=== PATIENT | male | born 1930 | race Caucasian/White ===

== ENCOUNTER 2019-09-27 16:39 | Emergency (ER) | payer MEDICARE, OTHER ==
[2019-09-27] MEDS ORDERED: Sodium Chloride 0.9% 10 ML Syringe FLUSH PRN (17:47)
--- NOTE | 2019-09-27 17:53 | EDM.PDOC ---
<OfficerMelo - Last Filed: 09/27/19 19:03> ED HPI GENERAL MEDICAL PROBLEM - General Chief Complaint: Respiratory Problem Stated Complaint: TROUBLE BREATHING Time Seen by Provider: 09/27/19 17:38 Source of Information: Reports: Patient, Old Records, RN Notes Reviewed History Limitations: Reports: No Limitations - History of Present Illness INITIAL COMMENTS - FREE TEXT/NARRATIVE: 88-year-old gentleman presents emergency department a complaint of shortness of breath he has a known history of chronic diastolic congestive heart failure states he has noticed a weight gain 5 to 10 pounds over the last week or so he has been using his medications and he does have leg wraps that are put on daily he is a resident of assisted living facility no chest pain no fevers no nausea or vomiting no diaphoresis - Related Data Allergies Allergy/AdvReac Type Severity Reaction Status Date / Time No Known Allergies Allergy Verified 09/27/19 16:56 Home Meds: Home Meds Aspirin 1 tab PO DAILY 09/27/19 [History] Docusate Sodium [Colace] 2 cap PO DAILY 09/27/19 [History] Furosemide [Lasix] 60 mg PO BID 09/27/19 [History] Insulin Glargine/Lixisenatide [Soliqua 100 Unit-33 Mcg/ml Pen] 70 units SQ ACBREAKFAST 09/27/19 [History] Insulin Lispro [Humalog Kwikpen U-100] See Protocol SQ TID 09/27/19 [History] Magnesium Oxide [Magnesium] 1 tab PO DAILY 09/27/19 [History] Metoprolol Succinate 1 tab PO DAILY 09/27/19 [History] Pantoprazole 1 tab PO DAILY 09/27/19 [History] Tamsulosin [Flomax] 1 tab PO DAILY 09/27/19 [History] Tolterodine [Detrol LA 24 Hr] 1 tab PO DAILY 09/27/19 [History] atorvaSTATin [Lipitor] 1 tab PO DAILY 09/27/19 [History] metFORMIN [Glucophage] 1 tab PO BID 09/27/19 [History] Past Medical History Cardiovascular History: Reports: Afib, CAD, Cardiomyopathy, Heart Failure, High Cholesterol, Hypertension Genitourinary History: Reports: Chronic Renal Insuffiency Endocrine/Metabolic History: 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, Type II Social & Family History - Tobacco Use Smoking Status *Q: Never Smoker ED ROS GENERAL - Review of Systems Review Of Systems: See Below Constitutional: Denies: Fever, Chills, Weakness HEENT: Reports: No Symptoms Respiratory: Reports: Shortness of Breath. Denies: Wheezing, Cough, Sputum Cardiovascular: Reports: Dyspnea on Exertion, Edema GI/Abdominal: Reports: No Symptoms : Reports: No Symptoms Musculoskeletal: Reports: No Symptoms ED EXAM, GENERAL - Physical Exam Exam: See Below Exam Limited By: No Limitations General Appearance: Alert, WD/WN, No Apparent Distress Neck: Normal Inspection, Supple, Non-Tender, Full Range of Motion Respiratory/Chest: No Respiratory Distress, No Accessory Muscle Use, Chest Non- Tender, Decreased Breath Sounds Cardiovascular: No Murmur, Irregularly Irregular GI/Abdominal: Soft, Non-Tender Back Exam: Normal Inspection, Full Range of Motion. No: CVA Tenderness (R), CVA Tenderness (L) Course - Vital Signs Last Recorded V/S: Last Vital Signs Temp 36.2 C 09/27/19 17:02 Pulse 117 H 09/27/19 17:02 Resp 16 09/27/19 17:02 BP 129/86 09/27/19 17:02 Pulse Ox 97 09/27/19 17:02 - Orders/Labs/Meds Orders: Active Orders 24 hr Category Date Time Status Cardiac Monitoring [RC] .As Directed Care 09/27/19 17:48 Active EKG Documentation Completion [RC] ASDIRECTED Care 09/27/19 17:49 Active Peripheral IV Care [RC] . DIRECTED Care 09/27/19 17:49 Active Chest 1V Frontal [CR] Stat Exams 09/27/19 17:49 Taken Sodium Chloride 0.9% [Saline Flush] Med 09/27/19 17:47 Active 10 ml FLUSH ASDIRECTED PRN Peripheral IV Insertion Adult [OM.PC] Stat Oth 09/27/19 17:47 Ordered Saline Lock Insert [OM.PC] Stat Oth 09/27/19 17:47 Ordered EKG 12 Lead [EK] Stat Ther 09/27/19 17:49 Stop Req Medication Orders Sodium Chloride (Saline Flush) 10 ml FLUSH ASDIRECTED PRN PRN Reason: Keep Vein Open Last Admin: 09/27/19 19:35 Dose: 10 ml Labs: Laboratory Tests 09/27/19 09/27/19 Range/Units 18:03 18:03 WBC 4.5 (4.5-11.0) K/uL RBC 4.12 L (4.30-5.90) M/uL Hgb 11.3 L (12.0-15.0) g/dL Hct 37.1 L (40.0-54.0) % MCV 90 (80-98) fL MCH 27 (27-31) pg MCHC 31 L (32-36) % Plt Count 162 (150-400) K/uL Neut % (Auto) 70 H (36-66) % Lymph % (Auto) 14 L (24-44) % [place] % (Auto) 11 H (2-6) % Eos % (Auto) 3 (2-4) % Baso % (Auto) 2 H (0-1) % Sodium 137 L (140-148) mmol/L Potassium 4.5 (3.6-5.2) mmol/L Chloride 99 L (100-108) mmol/L Carbon Dioxide 32 (21-32) mmol/L Anion Gap 10.5 (5.0-14.0) mmol/L BUN 46 H (7-18) mg/dL Creatinine 2.3 H (0.8-1.3) mg/dL Est Cr Clr Drug Dosing 24.55 mL/min Estimated GFR (MDRD) 27 L (>60) Glucose 322 H (74-106) mg/dL Calcium 9.1 (8.5-10.1) mg/dL Total Bilirubin 1.0 (0.2-1.0) mg/dL AST 24 (15-37) U/L ALT 26 (12-78) U/L Alkaline Phosphatase 202 H (46-116) U/L Troponin I < 0.017 (0.000-0.056) ng/mL NT-Pro-B Natriuret Pep 4751 H (5-450) pg/mL Total Protein 6.5 (6.4-8.2) g/dL Albumin 3.2 L (3.4-5.0) g/dL Globulin 3.3 (2.3-3.5) g/dL Albumin/Globulin Ratio 1.0 L (1.2-2.2) Meds: Medications Generic Name Dose Route Start Last Admin Trade Name Freq PRN Reason Stop Dose Admin Sodium Chloride 10 ml 09/27/19 17:47 09/27/19 19:35 Saline Flush FLUSH 10 ml ASDIRECTED PRN Administration Keep Vein Open Discontinued Medications Generic Name Dose Route Start Last Admin Trade Name Rachael PRN Reason Stop Dose Admin Furosemide 80 mg 09/27/19 19:00 09/27/19 19:35 Lasix IVPUSH 09/27/19 19:01 80 mg ONETIME ONE Administration Departure - Departure Disposition: Home, Self-Care 01 Condition: Fair Clinical Impression: None Diastolic CHF Qualifiers: Heart failure chronicity: acute on chronic Qualified Code(s): I50.33 - Acute on chronic diastolic (congestive) heart failure - Discharge Information Instructions: Heart Failure Exacerbation Referrals: Tae Lane MD [Primary Care Provider] - Forms: ED Department Discharge Additional Instructions: Increase your Lasix from 60 mg twice a day to 80 mg twice a day, follow-up with your primary care provider in the next 1 to 2 days for reevaluation Sepsis Event Note - Evaluation Sepsis Screening Result: No Definite Risk - Focused Exam Vital Signs: Vital Signs Temp Pulse Resp BP Pulse Ox 09/27/19 17:02 36.2 C 117 H 16 129/86 97 09/27/19 16:54 36.2 C 117 H 16 129/86 97 Date Exam was Performed: 09/27/19 Time Exam was Performed: 19:03 - Assessment/Plan Plan: Assessment Acuity = acute Site and laterality = exacerbation diastolic congestive heart failure Etiology = unknown Manifestations = none Location of injury = Home Lab values = hemoglobin low 11.3 consistent normochromic anemia creatinine elevated 2.3 consistent chronic renal failure stage G4 troponin was negative BNP elevated 4751 consistent fluid overload type pattern chest x-ray is consistent with congestive heart failure official read radiologist pending Plan He was provided 80 mg Lasix IV while in the emergency department provided good output plan is to increase his Lasix from 60 mg p.o. twice daily to 80 mg p.o. twice daily and then follow-up with primary care 2 to 3 days for reevaluation This note was dictated using [employer] voice recognition software please call with any questions on syntax or grammar. <Aiden Nathan G - Last Filed: 09/27/19 20:46> Course - Re-Assessments/Exams Free Text/Narrative Re-Assessment/Exam: 09/27/19 20:45 Is breathing better after IV furosemide. Departure - Departure Time of Disposition: 20:50 Condition: Fair - Discharge Information *PRESCRIPTION DRUG MONITORING PROGRAM REVIEWED*: Not Applicable *COPY OF PRESCRIPTION DRUG MONITORING REPORT IN PATIENT CINDY: Not Applicable Sepsis Event Note - Focused Exam Date Exam was Performed: 09/27/19 Time Exam was Performed: 20:45
[2019-09-27] MEDS ORDERED: Furosemide 40 MG/4 ML VIAL IVPUSH ONE (19:00)
--- NOTE | 2019-09-28 12:03 | CR ---
CHEST: Portable 09/27/2019 at 6:18 PM CLINICAL HISTORY:Chest pain COMPARISON:None FINDINGS: Heart is enlarged. Pulmonary vascular areas cephalized. There is some patchy airspace disease at both lung bases likely some compressive atelectasis. Patient has small bilateral pleural effusions, right greater than left IMPRESSION: Right megaly with vascular cephalization and bilateral pleural effusions. Consistent with CHF. No significant edema or infiltrate is seen
== END 2019-09-27 21:13 | disposition home or self-care (01) ==
LOC: JP.ED 16:39
DX: I13.0 Hypertensive heart and chronic kidney disease with heart failure and stage 1 through stage 4 chronic kidney disease, or unspecified chronic kidney disease (principal); E11.22 Type 2 diabetes mellitus with diabetic chronic kidney disease; N18.9 Chronic kidney disease, unspecified; I50.33 Acute on chronic diastolic (congestive) heart failure; I48.91 Unspecified atrial fibrillation; I25.10 Atherosclerotic heart disease of native coronary artery without angina pectoris; E78.00 Pure hypercholesterolemia, unspecified; Z79.82 Long term (current) use of aspirin; Z79.899 Other long term (current) drug therapy; Z79.4 Long term (current) use of insulin
CPT/HCPCS: 36415; 71045; 80053; 83880; 84484; 85025; 96374; 99284; 99285; J1940

== ENCOUNTER 2019-10-13 14:11 | Emergency (ER) | payer MEDICARE, OTHER ==
--- NOTE | 2019-10-13 15:23 | EDM.PDOC ---
ED HPI GENERAL MEDICAL PROBLEM - General Chief Complaint: General Stated Complaint: LOSS WEIGHT Time Seen by Provider: 10/13/19 15:23 Source of Information: Reports: Patient History Limitations: Reports: No Limitations - History of Present Illness INITIAL COMMENTS - FREE TEXT/NARRATIVE: pt arrived with a history of having some low bps in the last 24 hours. He is feeling quite weak. He has had chronic lymphedema which his legs are wrapped for. Onset: Gradual Duration: Hour(s): Location: Reports: Chest, Lower Extremity, Left, Lower Extremity, Right, Generalized Associated Symptoms: Reports: Weakness, Other (low bp. ) - Related Data Allergies Allergy/AdvReac Type Severity Reaction Status Date / Time No Known Allergies Allergy Verified 09/27/19 16:56 Home Meds: Home Meds Aspirin 1 tab PO DAILY 09/27/19 [History] Docusate Sodium [Colace] 2 cap PO DAILY 09/27/19 [History] Furosemide [Lasix] 80 mg PO BID 09/27/19 [History] Insulin Glargine/Lixisenatide [Soliqua 100 Unit-33 Mcg/ml Pen] 70 units SQ ACBREAKFAST 09/27/19 [History] Insulin Lispro [Humalog Kwikpen U-100] See Protocol SQ TID 09/27/19 [History] Magnesium Oxide [Magnesium] 1 tab PO DAILY 09/27/19 [History] Metoprolol Succinate 1 tab PO DAILY 09/27/19 [History] Pantoprazole 1 tab PO DAILY 09/27/19 [History] Tamsulosin [Flomax] 1 tab PO DAILY 09/27/19 [History] Tolterodine [Detrol LA 24 Hr] 1 tab PO DAILY 09/27/19 [History] atorvaSTATin [Lipitor] 1 tab PO DAILY 09/27/19 [History] metFORMIN [Glucophage] 1 tab PO BID 09/27/19 [History] metOLazone [Metolazone] 5 mg PO DAILY 10/13/19 [History] Past Medical History Cardiovascular History: Reports: Afib, CAD, Cardiomyopathy, Heart Failure, High Cholesterol, Hypertension Genitourinary History: Reports: Chronic Renal Insuffiency Endocrine/Metabolic History: 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, Type II Social & Family History - Tobacco Use Smoking Status *Q: Never Smoker - Caffeine Use Caffeine Use: Reports: Coffee - Recreational Drug Use Recreational Drug Use: No ED ROS GENERAL - Review of Systems Review Of Systems: See Below Constitutional: Reports: Weakness, Weight Loss HEENT: Reports: No Symptoms Respiratory: Reports: No Symptoms Cardiovascular: Reports: No Symptoms Endocrine: Reports: No Symptoms GI/Abdominal: Reports: No Symptoms : Reports: No Symptoms Musculoskeletal: Reports: No Symptoms Skin: Reports: No Symptoms Neurological: Reports: No Symptoms Psychiatric: Reports: No Symptoms ED EXAM, GENERAL - Physical Exam Exam: See Below Free Text/Narrative:: pt arrived with concern regarding lower bps and a 10 lb wt loss. He has been weaker than usual. He is not eating well. Exam Limited By: Intoxication General Appearance: Alert, No Apparent Distress, Anxious Ears: Normal TMs Nose: Normal Mucosa Throat/Mouth: Normal Inspection Head: Atraumatic Neck: Normal Inspection Respiratory/Chest: No Respiratory Distress Cardiovascular: Regular Rate, Rhythm GI/Abdominal: Soft, Non-Tender (Male) Exam: Deferred Rectal (Males) Exam: Deferred Back Exam: Normal Inspection Extremities: Other (marked swelling in the lower legs bilateral. He does have a known history of lymphedema. ) Neurological: Alert, Oriented, Normal Cognition, Other (pt was recently placed on zarocolyn. The nephrolgist thought he was on the dry side when he was last seen. ) Psychiatric: Normal Affect Course - Vital Signs Last Recorded V/S: Last Vital Signs Temp 36.7 C 10/13/19 15:04 Pulse 85 10/13/19 17:11 Resp 16 10/13/19 17:11 BP 118/70 10/13/19 17:11 Pulse Ox 97 10/13/19 17:11 Orthostatic Blood Pressure [ 114/58 Sitting] Orthostatic Blood Pressure [ 109/73 Supine] - Orders/Labs/Meds Orders: Active Orders 24 hr Category Date Time Status Orthostatic Vital Signs [RC] ASDIRECTED Care 10/13/19 15:23 Active Sodium Chloride 0.9% [Normal Saline] 1,000 ml Med 10/13/19 16:00 Active IV ASDIRECTED Medication Orders Sodium Chloride (Normal Saline) 1,000 mls @ 500 mls/hr IV ASDIRECTED CADY Last Admin: 10/13/19 16:19 Dose: 500 mls/hr Labs: Laboratory Tests 10/13/19 10/13/19 10/13/19 Range/Units 15:16 15:16 15:23 WBC 6.0 (4.5-11.0) K/uL RBC 4.17 L (4.30-5.90) M/uL Hgb 11.4 L (12.0-15.0) g/dL Hct 37.1 L (40.0-54.0) % MCV 89 (80-98) fL MCH 27 (27-31) pg MCHC 31 L (32-36) % Plt Count 202 (150-400) K/uL Neut % (Auto) 76 H (36-66) % Lymph % (Auto) 10 L (24-44) % [place] % (Auto) 11 H (2-6) % Eos % (Auto) 2 (2-4) % Baso % (Auto) 1 (0-1) % Sodium 137 L (140-148) mmol/L Potassium 3.5 L (3.6-5.2) mmol/L Chloride 92 L (100-108) mmol/L Carbon Dioxide 36 H (21-32) mmol/L Anion Gap 12.5 (5.0-14.0) mmol/L BUN 74 H D (7-18) mg/dL Creatinine 2.6 H (0.8-1.3) mg/dL Est Cr Clr Drug Dosing 21.72 mL/min Estimated GFR (MDRD) 24 L (>60) Glucose 346 H (74-106) mg/dL Calcium 8.9 (8.5-10.1) mg/dL Total Bilirubin 1.7 H D (0.2-1.0) mg/dL AST 21 (15-37) U/L ALT 22 (12-78) U/L Alkaline Phosphatase 167 H (46-116) U/L C-Reactive Protein 0.15 (0.0-0.3) mg/dL Total Protein 6.5 (6.4-8.2) g/dL Albumin 3.1 L (3.4-5.0) g/dL Globulin 3.4 (2.3-3.5) g/dL Albumin/Globulin Ratio 0.9 L (1.2-2.2) Urine Color (YELLOW) Urine Appearance (CLEAR) Urine pH (5.0-8.0) Ur Specific [place] (1.008-1.030) Urine Protein (NEGATIVE) mg/dL Urine Glucose (UA) (NEGATIVE) mg/dL Urine Ketones (NEGATIVE) mg/dL Urine Occult Blood (NEGATIVE) Urine Nitrite (NEGATIVE) Urine Bilirubin (NEGATIVE) Urine Urobilinogen (0.2-1.0) EU/dL Ur Leukocyte Esterase (NEGATIVE) Urine RBC (0-5) Urine WBC (0-5) Ur Epithelial Cells Amorphous Sediment Urine Bacteria Urine Mucus 05/26/20 Range/Units 16:11 WBC (4.5-11.0) K/uL RBC (4.30-5.90) M/uL Hgb (12.0-15.0) g/dL Hct (40.0-54.0) % MCV (80-98) fL MCH (27-31) pg MCHC (32-36) % Plt Count (150-400) K/uL Neut % (Auto) (36-66) % Lymph % (Auto) (24-44) % [place] % (Auto) (2-6) % Eos % (Auto) (2-4) % Baso % (Auto) (0-1) % Sodium (140-148) mmol/L Potassium (3.6-5.2) mmol/L Chloride (100-108) mmol/L Carbon Dioxide (21-32) mmol/L Anion Gap (5.0-14.0) mmol/L BUN (7-18) mg/dL Creatinine (0.8-1.3) mg/dL Est Cr Clr Drug Dosing mL/min Estimated GFR (MDRD) (>60) Glucose (74-106) mg/dL Calcium (8.5-10.1) mg/dL Total Bilirubin (0.2-1.0) mg/dL AST (15-37) U/L ALT (12-78) U/L Alkaline Phosphatase (46-116) U/L C-Reactive Protein (0.0-0.3) mg/dL Total Protein (6.4-8.2) g/dL Albumin (3.4-5.0) g/dL Globulin (2.3-3.5) g/dL Albumin/Globulin Ratio (1.2-2.2) Urine Color Yellow (YELLOW) Urine Appearance Clear (CLEAR) Urine pH 7.5 (5.0-8.0) Ur Specific [place] 1.020 (1.008-1.030) Urine Protein Negative (NEGATIVE) mg/dL Urine Glucose (UA) Negative (NEGATIVE) mg/dL Urine Ketones Negative (NEGATIVE) mg/dL Urine Occult Blood Negative (NEGATIVE) Urine Nitrite Negative (NEGATIVE) Urine Bilirubin Negative (NEGATIVE) Urine Urobilinogen 1.0 (0.2-1.0) EU/dL Ur Leukocyte Esterase Negative (NEGATIVE) Urine RBC 0-5 (0-5) Urine WBC 0-5 (0-5) Ur Epithelial Cells Not seen Amorphous Sediment Not seen Urine Bacteria Not seen Urine Mucus Not seen Meds: Medications Generic Name Dose Route Start Last Admin Trade Name Freq PRN Reason Stop Dose Admin Sodium Chloride 1,000 mls @ 500 mls/hr 10/13/19 16:00 10/13/19 16:19 Normal Saline IV 500 mls/hr ASDIRECTED CADY Administration Discontinued Medications Generic Name Dose Route Start Last Admin Trade Name Freq PRN Reason Stop Dose Admin Insulin Glargine 5 units 10/14/19 09:00 Lantus Solostar SUBCUT 10/14/19 09:01 DAILY ONE Insulin Human Regular 5 unit 10/13/19 16:21 10/13/19 16:42 Humulin R SUBCUT 10/13/19 16:22 5 units ONETIME ONE Administration - Re-Assessments/Exams Free Text/Narrative Re-Assessment/Exam: 10/13/19 16:36 pt had orthostatic bp done which was normal except for a sig drop in pulse when he sat up. His lab wotk would indicate that he was on the dry side. 10/13/19 16:46 pt was hydrated with 1 liter of fluid. He had lab work which would indicate he was dehydrated. His lab work 10/13/19 16:48 his creatnine is 2.6. His glucose was 320 and he was given 5 units of regular insulin. Departure - Departure Time of Disposition: 18:04 Disposition: Home, Self-Care 01 Condition: Fair Clinical Impression: Dehydration, Renal insufficiency - Discharge Information Referrals: Tae Lane MD [Primary Care Provider] - Forms: ED Department Discharge Care Plan Goals: decrease zaroxolyn to 5 mg twice wekly, send a copy of lab work with the pt back to [facility]. Sepsis Event Note - Evaluation Sepsis Screening Result: No Definite Risk - Focused Exam Vital Signs: Vital Signs Temp Pulse Resp BP Pulse Ox 10/13/19 17:11 85 16 118/70 97 10/13/19 15:56 81 16 115/66 94 L 10/13/19 15:04 36.7 C 115 H 18 107/68 95 10/13/19 15:00 36.7 C 115 H 18 107/68 95 Date Exam was Performed: 10/13/19 Time Exam was Performed: 18:03 - My Orders Last 24 Hours: My Active Orders 10/13/19 15:23 Orthostatic Vital Signs [RC] ASDIRECTED 10/13/19 16:00 Sodium Chloride 0.9% [Normal Saline] 1,000 ml IV ASDIRECTED - Assessment/Plan Last 24 Hours: My Active Orders 10/13/19 15:23 Orthostatic Vital Signs [RC] ASDIRECTED 10/13/19 16:00 Sodium Chloride 0.9% [Normal Saline] 1,000 ml IV ASDIRECTED
[2019-10-13] MEDS ORDERED: Sodium Chloride 0.9% 1,000 ML IV SCH (16:00)
[2019-10-13] MEDS ORDERED: Insulin Regular, Human 100 Units/ML 3 ML Vial SUBCUT ONE (16:21)
[2019-10-14] MEDS ORDERED: Insulin Glargine,Human Rec. Analog 100 Units/ML 3 ML Pen SUBCUT ONE (09:00)
== END 2019-10-13 18:47 | disposition home or self-care (01) ==
LOC: JP.ED 14:11
DX: E86.0 Dehydration (principal); E11.22 Type 2 diabetes mellitus with diabetic chronic kidney disease; N18.9 Chronic kidney disease, unspecified; E78.00 Pure hypercholesterolemia, unspecified; I50.9 Heart failure, unspecified; I48.91 Unspecified atrial fibrillation; Z79.82 Long term (current) use of aspirin; Z79.4 Long term (current) use of insulin; Z79.899 Other long term (current) drug therapy
CPT/HCPCS: 36415; 80053; 81001; 82962; 85025; 86140; 96360; 96361; 99283; 99284; J1815; J7030

== ENCOUNTER 2019-10-30 06:09 | Emergency (ER) | payer MEDICARE, OTHER ==
--- NOTE | 2019-10-30 06:38 | EDM.PDOC ---
ED HPI GENERAL MEDICAL PROBLEM - General Chief Complaint: Upper Extremity Injury/Pain Stated Complaint: FELL Time Seen by Provider: 10/30/19 06:33 Source of Information: Reports: Patient History Limitations: Reports: No Limitations - History of Present Illness INITIAL COMMENTS - FREE TEXT/NARRATIVE: pt fell about 10 pm last nite and hit a wall. He developed pain and swellin in the rt wrist. He arrived this am because he thought he could have a fracture in the wrist. Onset: Other (pt fell at 10pm last nite. ) Duration: Hour(s): Location: Reports: Upper Extremity, Right Associated Symptoms: Reports: No Other Symptoms, Other (pt did hit his head but was not knocked out. He is not on blood thinners. ) right wrist Pain Score (Numeric/FACES): 9 - Related Data Allergies Allergy/AdvReac Type Severity Reaction Status Date / Time No Known Allergies Allergy Verified 10/30/19 06:22 Home Meds: Home Meds Aspirin 1 tab PO DAILY 09/27/19 [History] Docusate Sodium [Colace] 2 cap PO DAILY 09/27/19 [History] Furosemide [Lasix] 80 mg PO BID 09/27/19 [History] Insulin Glargine/Lixisenatide [Soliqua 100 Unit-33 Mcg/ml Pen] 70 units SQ ACBREAKFAST 09/27/19 [History] Insulin Lispro [Humalog Kwikpen U-100] See Protocol SQ TID 09/27/19 [History] Magnesium Oxide [Magnesium] 1 tab PO DAILY 09/27/19 [History] Metoprolol Succinate 1 tab PO DAILY 09/27/19 [History] Pantoprazole 1 tab PO DAILY 09/27/19 [History] Tamsulosin [Flomax] 1 tab PO DAILY 09/27/19 [History] Tolterodine [Detrol LA 24 Hr] 1 tab PO DAILY 09/27/19 [History] atorvaSTATin [Lipitor] 1 tab PO DAILY 09/27/19 [History] metFORMIN [Glucophage] 1 tab PO BID 09/27/19 [History] metOLazone [Metolazone] 5 mg PO DAILY 10/13/19 [History] Past Medical History HEENT History: Reports: Other (See Below) Other HEENT History: Dry Eye Syndrome Cardiovascular History: Reports: Afib, CAD, Cardiomyopathy, Heart Failure, High Cholesterol, Hypertension Genitourinary History: Reports: Chronic Renal Insuffiency Musculoskeletal History: Reports: Other (See Below) Other Musculoskeletal History: carpal rafa Endocrine/Metabolic History: 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, Type II - Infectious Disease History 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 ) Skin: Reports: No Symptoms ED EXAM, GENERAL - Physical Exam Exam: See Below Free Text/Narrative:: pt is alert and able to give a good history. Exam Limited By: No Limitations General Appearance: Alert, Mild Distress Ears: Normal TMs Nose: Normal Inspection Throat/Mouth: Normal Inspection Neck: Normal Inspection Respiratory/Chest: No Respiratory Distress Extremities: Other (pt is tender with the rt wrist. There is mild swelling of the wrist. He has normal sensation and circulation. ) Neurological: Alert, Normal Cognition Course - Vital Signs Last Recorded V/S: Last Vital Signs Temp 36.7 C 10/30/19 06:21 Pulse 48 L 10/30/19 06:21 Resp 14 10/30/19 06:21 BP 97/51 L 10/30/19 06:21 Pulse Ox 96 10/30/19 06:21 - Orders/Labs/Meds Orders: Active Orders 24 hr Category Date Time Status Wrist Comp Min 3V Rt [CR] Stat Exams 10/30/19 06:32 Ordered - Re-Assessments/Exams Free Text/Narrative Re-Assessment/Exam: 10/30/19 06:58 xrays revealed a undisplaced fracture of the radius. a short arm premade splint was appled. Pt will elevate and us a cool pack. Departure - Departure Time of Disposition: 06:59 Disposition: Home, Self-Care 01 Condition: Fair Clinical Impression: Right radial fracture - Discharge Information Referrals: Tae Lane MD [Primary Care Provider] - Forms: ED Department Discharge Care Plan Goals: leave splint in place. elevate the arm when sitting, cool pack, sling when up and about, appt with ortho--Dr Carvajal Saturday. [id number] 1 tab q6h prn for pain. codiene can cause constipation use some prunes or be watchful of bowel movements. Sepsis Event Note (ED) - Evaluation Sepsis Screening Result: No Definite Risk - Focused Exam Vital Signs: Vital Signs Temp Pulse Resp BP Pulse Ox 10/30/19 06:21 36.7 C 48 L 14 97/51 L 96 - My Orders Last 24 Hours: My Active Orders 10/30/19 06:32 Wrist Comp Min 3V Rt [CR] Stat - Assessment/Plan Last 24 Hours: My Active Orders 10/30/19 06:32 Wrist Comp Min 3V Rt [CR] Stat
--- NOTE | 2019-10-30 09:12 | CR ---
Wrist Comp Min 3V Rt CLINICAL HISTORY: Fall FINDINGS: There is an impacted fracture of the distal radius. There is arterial calcification. There is also calcification in the triangular fibrocartilage complex. The there are osteoarthritic changes in the wrist. Bones are osteoporotic. Impression: Impaction fracture distal radius Osteoarthritis Osteoporosis
== END 2019-10-30 07:24 | disposition home or self-care (01) ==
LOC: JP.ED 06:09
DX: S52.501A Unspecified fracture of the lower end of right radius, initial encounter for closed fracture (principal); I48.91 Unspecified atrial fibrillation; I25.10 Atherosclerotic heart disease of native coronary artery without angina pectoris; E78.00 Pure hypercholesterolemia, unspecified; I13.0 Hypertensive heart and chronic kidney disease with heart failure and stage 1 through stage 4 chronic kidney disease, or unspecified chronic kidney disease; N18.9 Chronic kidney disease, unspecified; I50.9 Heart failure, unspecified; E11.22 Type 2 diabetes mellitus with diabetic chronic kidney disease; Z79.4 Long term (current) use of insulin; Z79.899 Other long term (current) drug therapy; W22.8XXA Striking against or struck by other objects, initial encounter
CPT/HCPCS: 73110-26-RT; 73110-RT; 99283

== ENCOUNTER 2019-12-14 09:39 | Emergency (ER) | payer MEDICARE, OTHER ==
--- NOTE | 2019-12-14 10:16 | EDM.PDOC ---
ED HPI GENERAL MEDICAL PROBLEM - General Chief Complaint: Lower Extremity Injury/Pain Stated Complaint: right leg weakness Time Seen by Provider: 12/14/19 10:00 Source of Information: Reports: Patient, Family, Old Records, RN History Limitations: Reports: No Limitations - History of Present Illness INITIAL COMMENTS - FREE TEXT/NARRATIVE: 89 yo male recent admission to a local assisted living facility had his R knee give out this morning when he was attempting to get up. He almost fell, but didn't. He has no pain now lying in bed. 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 Dr. Peewee Carreon is his primary. He has had that knee injected remotely with "cortisone". He uses a wheeled walker to help him get around. Onset: Today, Sudden Onset Date: 12/14/19 Duration: Minutes:, Improving Location: Reports: Lower Extremity, Right Quality: Reports: Sharp, Stabbing Severity: Severe Improves with: Reports: Other (nonweight bearing) Worsens with: Reports: Other (weight bearing/walking) Context: Reports: Other (See HPI) Associated Symptoms: Reports: No Other Symptoms Treatments BATCH MAKER: Reports: Other (see below) (none) - Related Data Allergies Allergy/AdvReac Type Severity Reaction Status Date / Time No Known Allergies Allergy Verified 12/14/19 09:43 Home Meds: Home Meds Docusate Sodium [Colace] 2 cap PO DAILY 09/27/19 [History] Insulin Lispro [Humalog Kwikpen U-100] See Protocol SQ TID 09/27/19 [History] Magnesium Oxide [Magnesium] 1 tab PO DAILY 09/27/19 [History] Pantoprazole 40 mg PO DAILY 09/27/19 [History] Tamsulosin [Flomax] 0.4 mg PO DAILY 09/27/19 [History] Tolterodine [Detrol LA 24 Hr] 4 mg PO DAILY 10/30/19 [History] Acetaminophen with Codeine [Tylenol with Codeine #3 Tablet] 1 tab PO Q6H PRN 11/03/19 [History] Amoxicillin 2,000 mg PO ASDIRECTED 11/03/19 [History] Aspirin [Halfprin] 81 mg PO DAILY 11/03/19 [History] Dextrose [Glucose Gel] 38 gm PO ASDIRECTED 11/03/19 [History] Furosemide 80 mg PO DAILY 11/03/19 [History] Insulin Glarg,Human.Rec.Analog [Lantus Solostar] 70 units SQ DAILY 11/03/19 [History] Nitroglycerin 0.4 mg SL ASDIRECTED 11/03/19 [History] atorvaSTATin [Lipitor] 20 mg PO DAILY 11/03/19 [History] Past Medical History HEENT History: Reports: Other (See Below) Other HEENT History: Dry Eye Syndrome Cardiovascular History: Reports: Afib, CAD, Cardiomyopathy, Heart Failure, High Cholesterol, Hypertension Genitourinary History: Reports: Chronic Renal Insuffiency Musculoskeletal History: Reports: Fracture, Other (See Below) Other Musculoskeletal History: R wrist Fx 10/30/19 Endocrine/Metabolic History: 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, Type II - Infectious Disease History Infectious Disease History: Reports: WVX-Unviehflum-Bxnwsbihy Enterobacteriaceae, Measles, Mumps Social & Family History - Tobacco Use Smoking Status *Q: Never Smoker - Caffeine Use Caffeine Use: Reports: Coffee - Recreational Drug Use Recreational Drug Use: No Review of Systems - Review of Systems Review Of Systems: See Below Constitutional: Reports: No Symptoms Musculoskeletal: Reports: Joint Pain (R knee with flexion/extension while weight bearing only). Denies: Joint Swelling Skin: Reports: No Symptoms Neurological: Reports: No Symptoms ED EXAM, GENERAL - Physical Exam Exam: See Below Exam Limited By: No Limitations General Appearance: Alert, WD/WN, No Apparent Distress Extremities: Normal Inspection, Normal Range of Motion, Non-Tender, No Pedal Edema, Other (no effusion and no ligamentous laxity and no jt line tenderness. Passive ROM is nontender in ER. ). No: Pedal Edema, Limited Range of Motion, Increased Warmth, Redness Neurological: Alert, Oriented, CN II-XII Intact, Normal Cognition, No Motor/Sensory Deficits Psychiatric: Normal Affect, Normal Mood Skin Exam: Warm, Dry, Intact, Normal Color, No Rash Course - Vital Signs Last Recorded V/S: Last Vital Signs Temp 36.8 C 12/14/19 09:52 Pulse 76 12/14/19 09:52 Resp 16 12/14/19 09:52 BP 138/65 12/14/19 09:52 Pulse Ox 98 12/14/19 09:52 - Re-Assessments/Exams Free Text/Narrative Re-Assessment/Exam: 12/14/19 10:16 Will try walking with a knee immobilizer. Free Text/Narrative Re-Assessment/Exam: 12/14/19 10:24 Able to walk with immobilizer. Departure - Departure Time of Disposition: 10:30 Disposition: Home, Self-Care 01 Condition: Good Clinical Impression: Arthritis of knee, right - Discharge Information *PRESCRIPTION DRUG MONITORING PROGRAM REVIEWED*: No *COPY OF PRESCRIPTION DRUG MONITORING REPORT IN PATIENT CINDY: No Instructions: Arthritis, Beju-ex-Dfop Referrals: Tae Lane MD [Primary Care Provider] - Forms: ED Department Discharge Additional Instructions: Wear the immobilizer when you are walking to prevent your knee from giving out. Discuss your issue with either orthopedics or Dr. Carreon. Return as needed. Sepsis Event Note (ED) - Evaluation Sepsis Screening Result: No Definite Risk - Focused Exam Vital Signs: Vital Signs Temp Pulse Resp BP Pulse Ox 12/14/19 09:52 36.8 C 76 16 138/65 98
== END 2019-12-14 10:43 | disposition home or self-care (01) ==
LOC: JP.ED 09:39
DX: M17.11 Unilateral primary osteoarthritis, right knee (principal); I48.91 Unspecified atrial fibrillation; I25.10 Atherosclerotic heart disease of native coronary artery without angina pectoris; I13.0 Hypertensive heart and chronic kidney disease with heart failure and stage 1 through stage 4 chronic kidney disease, or unspecified chronic kidney disease; I50.9 Heart failure, unspecified; E11.22 Type 2 diabetes mellitus with diabetic chronic kidney disease; N18.9 Chronic kidney disease, unspecified; E78.00 Pure hypercholesterolemia, unspecified; Z79.82 Long term (current) use of aspirin; Z79.4 Long term (current) use of insulin; Z79.899 Other long term (current) drug therapy
CPT/HCPCS: 99283

== ENCOUNTER 2021-03-31 10:48 | Inpatient (IN) | payer MEDICARE, OTHER ==
[2021-03-31] MEDS ORDERED: Sodium Chloride 0.9% 10 ML Syringe FLUSH PRN (11:37)
--- NOTE | 2021-03-31 11:42 | EDM.PDOC ---
<Aiden Nathan G - Last Filed: 03/31/21 17:17> ED HPI GENERAL MEDICAL PROBLEM - General Chief Complaint: Cardiovascular Problem Stated Complaint: MEDICAL [facility] Time Seen by Provider: 03/31/21 11:20 Source of Information: Reports: Patient, EMS, Old Records, RN History Limitations: Reports: No Limitations - History of Present Illness INITIAL COMMENTS - FREE TEXT/NARRATIVE: 89 yo male resident of a local assisted living facility presents via EMS for bradycardia. He says his HR has been low for a few days. This AM he was transiently pale and had blurred vision as well so was sent via EMS to the ER. No CP or SOB reported. He was fully alert by the time EMS arrived. Has known chronic afib. Onset: Unknown/Unsure Duration: Day(s):, Getting Worse Location: Reports: Chest Quality: Reports: Other (pain not reported) Severity: Moderate Improves with: Reports: None Worsens with: Reports: Other (unsure) Context: Reports: Other (See HPI) Associated Symptoms: Reports: Loss of Appetite, Malaise. Denies: Chest Pain, Shortness of Breath Treatments CAMPER ASSEMBLER: Reports: Other (see below) (none) - Related Data Allergies Allergy/AdvReac Type Severity Reaction Status Date / Time No Known Allergies Allergy Verified 03/31/21 11:02 Home Meds: Home Meds Docusate Sodium [Colace] 2 cap PO DAILY 09/27/19 [History] Insulin Lispro [Humalog Kwikpen U-100] See Protocol SQ TID 09/27/19 [History] Magnesium Oxide [Magnesium] 1 tab PO DAILY 09/27/19 [History] Pantoprazole 40 mg PO DAILY 09/27/19 [History] Tolterodine [Detrol LA 24 Hr] 4 mg PO DAILY 10/30/19 [History] Amoxicillin 2,000 mg PO ASDIRECTED 11/03/19 [History] Aspirin [Halfprin] 81 mg PO DAILY 11/03/19 [History] Dextrose [Glucose Gel] 38 gm PO ASDIRECTED 11/03/19 [History] Furosemide 80 mg PO DAILY 11/03/19 [History] Insulin Glarg,Human.Rec.Analog [Lantus Solostar] 70 units SQ DAILY 11/03/19 [History] Nitroglycerin 0.4 mg SL ASDIRECTED 11/03/19 [History] atorvaSTATin [Lipitor] 20 mg PO DAILY 11/03/19 [History] Liraglutide [Victoza] 1.8 mg SQ DAILY 03/31/21 [History] Tolterodine Tartrate [Tolterodine Tartrate ER] 4 mg PO BEDTIME 03/31/21 [History] polyethylene glycoL 3350 [MiraLAX] 1 packet PO DAILY 03/31/21 [History] Past Medical History HEENT History: Reports: Other (See Below) Other HEENT History: Dry Eye Syndrome Cardiovascular History: Reports: Afib, CAD, Cardiomyopathy, Heart Failure, High Cholesterol, Hypertension Genitourinary History: Reports: Chronic Renal Insuffiency Musculoskeletal History: Reports: Fracture, Other (See Below) Other Musculoskeletal History: R wrist Fx 10/30/19. right knee pain. right shoulder pain Endocrine/Metabolic History: 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, Type II - Infectious Disease History Infectious Disease History: Reports: KND-Wveqjwnfhb-Yedpbryoz Enterobacteriaceae, Measles, Mumps - Past Surgical History Musculoskeletal Surgical History: Reports: None Social & Family History - Tobacco Use Tobacco Use Status *Q: Unknown Ever Used Tobacco - Caffeine Use Caffeine Use: Reports: Coffee - Recreational Drug Use Recreational Drug Use: No ED ROS GENERAL - Review of Systems Review Of Systems: See Below Constitutional: Reports: Malaise, Decreased Appetite HEENT: Reports: No Symptoms Respiratory: Reports: No Symptoms Cardiovascular: Reports: Lightheadedness (not now) Endocrine: Reports: No Symptoms GI/Abdominal: Reports: Decreased Appetite : Reports: No Symptoms Musculoskeletal: Reports: No Symptoms Skin: Reports: No Symptoms Neurological: Reports: No Symptoms ED EXAM, GENERAL - Physical Exam Exam: See Below Exam Limited By: No Limitations General Appearance: Alert, WD/WN, No Apparent Distress Eye Exam: Bilateral Eye: Normal Inspection Ears: Normal External Exam, Normal Canal, Hearing Grossly Normal Ear Exam: Bilateral Ear: Auricle Normal, Canal Normal Nose: Normal Inspection, No Blood Throat/Mouth: Normal Inspection, Normal Lips, Normal Oropharynx, Normal Voice, No Airway Compromise Head: Atraumatic, Normocephalic Neck: Normal Inspection Respiratory/Chest: No Respiratory Distress, Lungs Clear, Normal Breath Sounds, No Accessory Muscle Use Cardiovascular: Regular Rate, Rhythm, No Edema, Bradycardia GI/Abdominal: Soft, Non-Tender Back Exam: Normal Inspection Extremities: Normal Inspection, Normal Range of Motion, Non-Tender, No Pedal Edema Neurological: Alert, Oriented, CN II-XII Intact, Normal Cognition, No Motor/Sensory Deficits Psychiatric: Normal Affect, Normal Mood Skin Exam: Warm, Dry, Normal Color, Erythema (R groin(tinea cruris)), Wound/Incision (superficial decubiti on both medial buttocks, not infected.) #1 Interpretation EKG Date: 03/31/21 Time: 12:00 Rhythm: NSR Rate (Beats/Min): 38 [place]: Normal P-Wave: Present QRS: RBBB ST-T: Normal QT: Normal Comparison: NA - No Prior EKG (1st degree A-V block) Course - Vital Signs Text/Narrative:: Called [facility] about his situation, they placed him on a waiting list @ 1350h Departure - Departure Disposition: Admitted As Inpatient 68 Condition: Fair Clinical Impression: Elevated blood sugar, Tinea cruris, Symptomatic bradycardia, 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 Decubitus ulcer of ischial area Qualifiers: Pressure injury stage: stage 2 Laterality: unspecified laterality Qualified Code(s): L89.302 - Pressure ulcer of unspecified buttock, stage 2 Referrals: PCP,None [Primary Care Provider] - Forms: ED Department Discharge Sepsis Event Note (ED) - Evaluation Sepsis Screening Result: No Definite Risk <Dank Salazar - Last Filed: 04/01/21 06:41> Course - Vital Signs Last Recorded V/S: Last Vital Signs Temp 36.4 C 03/31/21 11:00 Pulse 34 L 04/01/21 03:00 Resp 13 04/01/21 03:00 BP 148/45 H 04/01/21 03:00 Pulse Ox 98 04/01/21 03:00 - Orders/Labs/Meds Orders: Active Orders 24 hr Category Date Time Status Cardiac Monitoring [RC] .As Directed Care 03/31/21 10:51 Active Dressing Change [Wound Care] [RC] DAILY Care 03/31/21 13:07 Active OR [id number] [CR] Routine Exams 04/01/21 09:00 Ordered Dextrose 50% in Water Med 03/31/21 12:32 Active 50 ml IVPUSH ASDIRECTED PRN Glucagon,Human Recombinant [GlucaGen] Med 03/31/21 12:32 Active 1 mg IM ASDIRECTED PRN Nystatin [Nystop] Med 03/31/21 14:30 Active 1 gm TOP BID Sodium Chloride 0.9% [Saline Flush] Med 03/31/21 11:37 Active 10 ml FLUSH ASDIRECTED PRN Saline Lock Insert [OM.PC] Routine Oth 03/31/21 11:37 Ordered EKG 12 Lead [EK] Routine Ther 03/31/21 11:49 Ordered Medication Orders Dextrose/Water (50% Dextrose In Water 50 Ml Syringe) 50 ml IVPUSH ASDIRECTED PRN PRN Reason: Hypoglycemia Glucagon (Glucagon,Human Recombinant 1 Mg Vial) 1 mg IM ASDIRECTED PRN PRN Reason: Hypoglycemia Nystatin (Nystatin Topical Powder 15 Gm Bottle) 1 gm TOP BID CADY Last Admin: 03/31/21 21:54 Dose: 1 dose Documented by: Admin: 03/31/21 14:31 Dose: 1 dose Documented by: LUKASZ Sodium Chloride (Sodium Chloride 0.9% 10 Ml Syringe) 10 ml FLUSH ASDIRECTED PRN PRN Reason: Keep Vein Open Last Admin: 03/31/21 11:54 Dose: 10 ml Documented by: HUMBERTO Labs: Laboratory Tests 03/31/21 03/31/21 03/31/21 Range/Units 11:55 11:55 12:33 WBC 5.8 (4.5-11.0) K/uL RBC 4.30 (4.30-5.90) M/uL Hgb 12.0 (12.0-15.0) g/dL Hct 37.4 L (40.0-54.0) % MCV 87 (80-98) fL MCH 28 (27-31) pg MCHC 32 (32-36) % Plt Count 174 (150-400) K/uL Sodium 140 (140-148) mmol/L Potassium 5.3 H (3.6-5.2) mmol/L Chloride 104 (100-108) mmol/L Carbon Dioxide 27 (21-32) mmol/L Anion Gap 14.3 H (5.0-14.0) mmol/L BUN 69 H (7-18) mg/dL Creatinine 2.7 H (0.8-1.3) mg/dL Est Cr Clr Drug Dosing 20.14 mL/min Estimated GFR (MDRD) 22 L (>60) Glucose 368 H (74-106) mg/dL POC Glucose (74-106) mg/dL Calcium 8.4 L (8.5-10.1) mg/dL Magnesium 2.0 (1.8-2.4) mg/dL Troponin I 0.060 H* (0.000-0.056) ng/mL TSH, Ultra Sensitive 1.707 (0.358-3.740) uIU/mL Urine Color (YELLOW) Urine Appearance (CLEAR) Urine pH (5.0-8.0) Ur Specific Hurricane (1.008-1.030) Urine Protein (NEGATIVE) mg/dL Urine Glucose (UA) (NEGATIVE) mg/dL Urine Ketones (NEGATIVE) mg/dL Urine Occult Blood (NEGATIVE) Urine Nitrite (NEGATIVE) Urine Bilirubin (NEGATIVE) Urine Urobilinogen (0.2-1.0) EU/dL Ur Leukocyte Esterase (NEGATIVE) Urine RBC (0-5) Urine WBC (0-5) Ur Epithelial Cells Amorphous Sediment Urine Bacteria Urine Mucus SARS CoV-2 RNA Rapid GIO 03/31/21 03/31/21 03/31/21 Range/Units 12:44 13:51 14:00 WBC (4.5-11.0) K/uL RBC (4.30-5.90) M/uL Hgb (12.0-15.0) g/dL Hct (40.0-54.0) % MCV (80-98) fL MCH (27-31) pg MCHC (32-36) % Plt Count (150-400) K/uL Sodium (140-148) mmol/L Potassium (3.6-5.2) mmol/L Chloride (100-108) mmol/L Carbon Dioxide (21-32) mmol/L Anion Gap (5.0-14.0) mmol/L BUN (7-18) mg/dL Creatinine (0.8-1.3) mg/dL Est Cr Clr Drug Dosing mL/min Estimated GFR (MDRD) (>60) Glucose (74-106) mg/dL POC Glucose (74-106) mg/dL Calcium (8.5-10.1) mg/dL Magnesium (1.8-2.4) mg/dL Troponin I 0.073 H* (0.000-0.056) ng/mL TSH, Ultra Sensitive (0.358-3.740) uIU/mL Urine Color Yellow (YELLOW) Urine Appearance Clear (CLEAR) Urine pH 6.0 (5.0-8.0) Ur Specific Hurricane 1.015 (1.008-1.030) Urine Protein 100 H (NEGATIVE) mg/dL Urine Glucose (UA) 250 H (NEGATIVE) mg/dL Urine Ketones Negative (NEGATIVE) mg/dL Urine Occult Blood Trace-intact H (NEGATIVE) Urine Nitrite Negative (NEGATIVE) Urine Bilirubin Negative (NEGATIVE) Urine Urobilinogen 2.0 H (0.2-1.0) EU/dL Ur Leukocyte Esterase Negative (NEGATIVE) Urine RBC Not seen (0-5) Urine WBC Not seen (0-5) Ur Epithelial Cells Few Amorphous Sediment Not seen Urine Bacteria Not seen Urine Mucus Not seen SARS CoV-2 RNA Rapid GIO Negative 03/31/21 Range/Units 18:26 WBC (4.5-11.0) K/uL RBC (4.30-5.90) M/uL Hgb (12.0-15.0) g/dL Hct (40.0-54.0) % MCV (80-98) fL MCH (27-31) pg MCHC (32-36) % Plt Count (150-400) K/uL Sodium (140-148) mmol/L Potassium (3.6-5.2) mmol/L Chloride (100-108) mmol/L Carbon Dioxide (21-32) mmol/L Anion Gap (5.0-14.0) mmol/L BUN (7-18) mg/dL Creatinine (0.8-1.3) mg/dL Est Cr Clr Drug Dosing mL/min Estimated GFR (MDRD) (>60) Glucose (74-106) mg/dL POC Glucose 232 H (74-106) mg/dL Calcium (8.5-10.1) mg/dL Magnesium (1.8-2.4) mg/dL Troponin I (0.000-0.056) ng/mL TSH, Ultra Sensitive (0.358-3.740) uIU/mL Urine Color (YELLOW) Urine Appearance (CLEAR) Urine pH (5.0-8.0) Ur Specific Hurricane (1.008-1.030) Urine Protein (NEGATIVE) mg/dL Urine Glucose (UA) (NEGATIVE) mg/dL Urine Ketones (NEGATIVE) mg/dL Urine Occult Blood (NEGATIVE) Urine Nitrite (NEGATIVE) Urine Bilirubin (NEGATIVE) Urine Urobilinogen (0.2-1.0) EU/dL Ur Leukocyte Esterase (NEGATIVE) Urine RBC (0-5) Urine WBC (0-5) Ur Epithelial Cells Amorphous Sediment Urine Bacteria Urine Mucus SARS CoV-2 RNA Rapid GIO Meds: Medications Generic Name Dose Route Start Last Admin Trade Name Freq PRN Reason Stop Dose Admin Dextrose/Water 50 ml 03/31/21 12:32 50% Dextrose In Water 50 Ml Syringe IVPUSH ASDIRECTED PRN Hypoglycemia Glucagon 1 mg 03/31/21 12:32 Glucagon,Human Recombinant 1 Mg Vial IM ASDIRECTED PRN Hypoglycemia Nystatin 1 gm 03/31/21 14:30 03/31/21 21:54 Nystatin Topical Powder 15 Gm Bottle TOP 1 dose BID CADY Administration Sodium Chloride 10 ml 03/31/21 11:37 03/31/21 11:54 Sodium Chloride 0.9% 10 Ml Syringe FLUSH 10 ml ASDIRECTED PRN Administration Keep Vein Open Discontinued Medications Generic Name Dose Route Start Last Admin Trade Name Freq PRN Reason Stop Dose Admin Atropine Sulfate 0.5 mg 03/31/21 17:17 03/31/21 17:43 Atropine 0.1 Mg/Ml 10 Ml Syringe IVPUSH 03/31/21 17:18 0.5 mg ONETIME ONE Administration Sodium Chloride 1,000 mls @ 1,000 mls/hr 03/31/21 12:32 03/31/21 12:43 Normal Saline IV 03/31/21 13:31 1,000 mls/hr .BOLUS ONE Administration Insulin Human Regular 20 unit 03/31/21 12:32 03/31/21 12:47 Insulin Regular, Human 100 Units/Ml 3 Ml Vial SUBCUT 03/31/21 12:33 20 units ONETIME ONE Administration - Re-Assessments/Exams Free Text/Narrative Re-Assessment/Exam: 03/31/21 18:15 [Dr. Salazar] I am assuming care of the patient from Dr. Nathan while awaiting for possible transfer to [facility] for pacemaker placement for symptomatic bradycardia. 03/31/21 22:35 [Dr. Salazar] I spoke with several different hospitals about transferring of the patient for pacemaker. Currently there are no available beds or facilities interested in taking the patient in transfer including [facility], [facility], [facility], and [facility]. All of these facilities are currently on diversion. I discussed the case with Dr. Gaston Haines, general surgeon at [facility] who does do pa cemaker insertions and has scheduled the patient for surgery for pacemaker placement at 9 AM this morning. I contacted the [employer] rep who is traveling from [place] but will be here with a pacemaker for insertion this morning. I discussed this with the patient and his son who are both in agreement with proceeding here. We will keep the patient n.p.o. and in the ER overnight as there is no beds currently to hospitalize him, however, Dr. Haines will discharge one of his patients from the ICU and 2 patients from the floor in the morning making room for the patient to be admitted. This was discussed with the melt house supervisor who is also in agreement with the plan. The patient remains n.p.o. after midnight. He has been symptomatically bradycardic but otherwise vitally stable with a heart rate between 30 and 35 bpm. It does appear that he is in second-degree heart block with 3-1 conduction. 04/01/21 07:00 care of the patient will be transferred back to Dr. Nathan at 0700 hrs. while awaiting for the patient to go to the OR for pacemaker placement. Departure - Departure Time of Disposition: 09:00 Sepsis Event Note (ED) - Focused Exam Vital Signs: Vital Signs Pulse Resp BP Pulse Ox 04/01/21 03:00 34 L 13 148/45 H 98 04/01/21 01:00 36 L 15 151/44 H 93 L 03/31/21 23:00 36 L 12 160/67 H 94 L 03/31/21 21:00 35 L 11 L 157/48 H 93 L 03/31/21 20:30 35 L 10 L 154/38 H 94 L 03/31/21 20:00 35 L 17 148/29 H 94 L 03/31/21 19:30 36 L 14 156/34 H 92 L 03/31/21 18:44 35 L 16 170/60 H
[2021-03-31] MEDS ORDERED: Glucagon,Human Recombinant 1 MG Vial IM PRN (12:32)
[2021-03-31] MEDS ORDERED: Sodium Chloride 0.9% 1,000 ML IV ONE (12:32)
[2021-03-31] MEDS ORDERED: 50% Dextrose in Water 50 ML Syringe IVPUSH PRN (12:32)
[2021-03-31] MEDS ORDERED: Insulin Regular, Human 100 Units/ML 3 ML Vial SUBCUT ONE (12:32)
[2021-03-31] MEDS ORDERED: Nystatin Topical Powder 15 GM Bottle TOP SCH (13:45)
[2021-03-31] MEDS: Nystatin Topical Powder 15 GM Bottle TOP SCH ×2 (14:31→21:54)
[2021-03-31] MEDS ORDERED: Atropine 0.1 MG/ML 10 ML Syringe IVPUSH ONE (17:17)
[2021-04-01] MEDS ORDERED: Meropenem 500 MG SDV ONE (06:43)
[2021-04-01] MEDS ORDERED: ceFAZolin 2 GM in Premix Bag 1 BAG IV ONE ×2 (07:39→08:30)
[2021-04-01] MEDS: Lactated Ringers 1,000 ML IV SCH ×2 (07:45→17:47)
[2021-04-01] MEDS ORDERED: fentaNYL 100 MCG/2 ML SDV ONE (08:41)
[2021-04-01] MEDS ORDERED: Propofol 200 MG/20 ML SDV ONE ×2 (08:42→11:12)
[2021-04-01] MEDS: Lidocaine 1% with EPINEPHrine 1:100,000 50 ML MDV ONE ×2 (09:16→10:45)
[2021-04-01] MEDS: Bupivacaine 0.5% 30 ML SDV ONE ×2 (09:16→10:45)
--- NOTE | 2021-04-01 12:18 | CRLCR ---
For Patients: As a result of the Century Cures Act, medical imaging exams and procedure reports are released immediately into your electronic medical record. You may view this report before your referring provider. If you have questions, please contact your health care provider. Indication: Pacemaker insertion Technique: Fluoroscopic imaging Comparison: No comparison Findings: Single fluoroscopic image demonstrates left cardiac dual lead pacer partially imaged. Visualized portions of leads appear intact.475 seconds of fluoro time. Please refer to the operative report for full details. Dictated by Ellie Frazier MD @ 04/01/2021 12:15:43 PM (Electronically Signed)
[2021-04-01] MEDS ORDERED: Ondansetron 4 MG/2 ML SDV IVPUSH PRN (12:32)
[2021-04-01] MEDS ORDERED: 50% Dextrose in Water 50 ML Syringe IVPUSH PRN ×2 (12:52→21:28)
[2021-04-01] MEDS ORDERED: Glucagon,Human Recombinant 1 MG Vial IM PRN ×2 (12:52→21:28)
[2021-04-01] MEDS ORDERED: Glucose Gel 15 GM in 37.5 GM Tube PO PRN (12:52)
[2021-04-01] MEDS: Furosemide 40 MG Tab PO SCH (13:19)
[2021-04-01] MEDS: Nystatin Topical Powder 15 GM Bottle TOP SCH (14:24)
[2021-04-01] MEDS: Acetaminophen 325 MG Tab PO PRN (16:15)
[2021-04-01] MEDS: ceFAZolin 1 GM in Premix Bag 1 BAG IV SCH (16:15)
[2021-04-01] MEDS: Insulin Lispro 100 Unit/ML 3 ML KwikPen SUBCUT SCH ×2 (17:52→21:54)
[2021-04-01] MEDS ORDERED: Insulin Lispro 100 Units/ML 3 ML Vial SUBCUT STA (21:28)
[2021-04-01] MEDS: Tolterodine 2 MG Tab PO SCH (21:45)
[2021-04-01] MEDS: atorvaSTATin 20 MG Tab PO SCH (21:45)
[2021-04-01] MEDS: Insulin Glargine,Human Rec. Analog 100 Units/ML 3 ML Pen SUBCUT SCH (21:45)
[2021-04-02] MEDS: ceFAZolin 1 GM in Premix Bag 1 BAG IV SCH ×2 (00:33→08:03)
[2021-04-02] MEDS: traMADol 50 MG Tab PO PRN (00:37)
[2021-04-02] MEDS: Acetaminophen 325 MG Tab PO PRN ×2 (00:38→08:31)
[2021-04-02] MEDS: Lactated Ringers 1,000 ML IV SCH (04:01)
[2021-04-02] MEDS: Pantoprazole 40 MG Tab.CR PO SCH (08:03)
[2021-04-02] MEDS: Docusate Sodium 100 MG Cap PO SCH (08:05)
[2021-04-02] MEDS: Polyethylene Glycol 3350 Powder 17 GM Packet PO SCH (08:06)
[2021-04-02] MEDS: Aspirin 81 MG Tab.EC PO SCH (08:06)
[2021-04-02] MEDS: Furosemide 40 MG Tab PO SCH (08:06)
[2021-04-02] MEDS: Tolterodine 2 MG Tab PO SCH ×2 (08:06→21:19)
[2021-04-02] MEDS: Liraglutide (rDNA Origin) 0.6 MG/0.1 ML 3 ML Pen SUBCUT SCH (08:07)
[2021-04-02] MEDS: Insulin Lispro 100 Unit/ML 3 ML KwikPen SUBCUT SCH ×4 (08:11→21:22)
[2021-04-02] MEDS ORDERED: Sodium Chloride 0.9% 10 ML Syringe IV PRN (08:29)
[2021-04-02] MEDS ORDERED: Furosemide 20 MG/2 ML VIAL IVPUSH ONE (09:00)
--- NOTE | 2021-04-02 09:53 | OR ---
DATE OF PROCEDURE: 04/02/2021 SURGEON: Luis Haines MD The patient is postop day 1 from a dual chamber pacemaker insertion. Pacemaker is functioning very well at this point and no wound complications are evident. Of note, the patient is very immobile and there is quite a bit of questioning within the nursing staff whether or not it would be appropriate at this time to send him back to assisted living where he presently resides. Given this, we will hold back on PT and discharge planning to see the patient in the morning. Otherwise, his BNP is up somewhat. We will give him some additional Lasix this morning IV before saline locking his IV. Oral intake has otherwise been good. Recheck some labs in the morning. Luis Haines MD Job #: [id number]
[2021-04-02] MEDS: Nystatin Crm 15 GM Tube TOP SCH ×3 (11:00→21:20)
[2021-04-02] MEDS: atorvaSTATin 20 MG Tab PO SCH (21:20)
[2021-04-02] MEDS: Insulin Glargine,Human Rec. Analog 100 Units/ML 3 ML Pen SUBCUT SCH (21:21)
[2021-04-03] MEDS: Nystatin Crm 15 GM Tube TOP SCH ×3 (05:33→21:40)
[2021-04-03] MEDS: traMADol 50 MG Tab PO PRN (05:55)
[2021-04-03] MEDS: Acetaminophen 325 MG Tab PO PRN (05:56)
[2021-04-03] MEDS ORDERED: Furosemide 20 MG/2 ML VIAL IVPUSH ONE (06:56)
[2021-04-03] MEDS: Tolterodine 2 MG Tab PO SCH ×2 (08:03→20:53)
[2021-04-03] MEDS: Pantoprazole 40 MG Tab.CR PO SCH (08:03)
[2021-04-03] MEDS: Aspirin 81 MG Tab.EC PO SCH (08:03)
[2021-04-03] MEDS: Docusate Sodium 100 MG Cap PO SCH (08:03)
[2021-04-03] MEDS: Insulin Lispro 100 Unit/ML 3 ML KwikPen SUBCUT SCH ×3 (08:07→21:39)
[2021-04-03] MEDS: Liraglutide (rDNA Origin) 0.6 MG/0.1 ML 3 ML Pen SUBCUT SCH (08:07)
[2021-04-03] MEDS: Polyethylene Glycol 3350 Powder 17 GM Packet PO SCH (08:16)
--- NOTE | 2021-04-03 08:46 | PN ---
DATE OF SERVICE: 04/03/2021 SUBJECTIVE: Yobany is postop day #2 following placement of a dual-chamber event pacemaker. He reports no pain. He will be evaluated by Physical Therapy and have a consultation with Discharge Planning this morning. Blood sugar was 308. BNP 7618. He has no concerns or questions. OBJECTIVE: GENERAL: Yobany Luis is a pleasant 89-year-old male. He is alert and orientated. VITAL SIGNS: TPR 98.5, 70, 18, blood pressure 143/59. HEENT: Negative. NECK: Supple. HEART: Regular rate and rhythm. The left upper incision dressing is taken down. There is no hematoma. Steri-Strips in place. LUNGS: Clear. ABDOMEN: Nondistended. EXTREMITIES: Without peripheral edema. ASSESSMENT: 1. Placement of dual-chamber event pacemaker for second-degree AV block with 1/2 to 1/3 conduction. 2. Date of procedure, 04/01/2021. Surgeon, Luis Haines MD. PLAN: 1. Lasix 20 mg IV 1 time today. 2. Follow up with regular doctor when discharged. 3. Continue to record blood sugars q.i.d. 4. Discharge Planning to communicate recommendations along with Physical Therapy on discharge. 5. We will evaluate p.r.n. or in a.m. Petrona Coyle PA-C /[id number]
[2021-04-03] MEDS: Furosemide 40 MG Tab PO SCH (09:39)
[2021-04-03] MEDS ORDERED: Ondansetron 4 MG/2 ML SDV IVPUSH PRN (14:45)
[2021-04-03] MEDS ORDERED: traMADol 50 MG Tab PO PRN (14:45)
[2021-04-03] MEDS ORDERED: Acetaminophen 325 MG Tab PO PRN (14:45)
[2021-04-03] MEDS ORDERED: 50% Dextrose in Water 50 ML Syringe IVPUSH PRN (14:48)
[2021-04-03] MEDS ORDERED: Glucose Gel 15 GM in 37.5 GM Tube PO PRN (14:48)
[2021-04-03] MEDS ORDERED: Glucagon,Human Recombinant 1 MG Vial IM PRN (14:48)
[2021-04-03] MEDS ORDERED: Sodium Chloride 0.9% 10 ML Syringe IV PRN (14:49)
[2021-04-03] MEDS ORDERED: Insulin Lispro 100 Unit/ML 3 ML KwikPen SUBCUT SCH (16:00)
[2021-04-03] MEDS: atorvaSTATin 20 MG Tab PO SCH (20:53)
[2021-04-03] MEDS ORDERED: Insulin Glargine,Human Rec. Analog 100 Units/ML 3 ML Pen SUBCUT SCH (21:00)
[2021-04-03] MEDS ORDERED: Insulin Lispro 100 Unit/ML 3 ML KwikPen SUBCUT ONE (21:15)
[2021-04-04] MEDS: Nystatin Crm 15 GM Tube TOP SCH ×4 (06:07→21:28)
[2021-04-04] MEDS: Pantoprazole 40 MG Tab.CR PO SCH (07:06)
[2021-04-04] MEDS ORDERED: Furosemide 20 MG/2 ML VIAL IVPUSH ONE (07:45)
[2021-04-04] MEDS: Insulin Lispro 100 Unit/ML 3 ML KwikPen SUBCUT SCH ×4 (08:40→21:27)
[2021-04-04] MEDS: Furosemide 40 MG Tab PO SCH (08:46)
[2021-04-04] MEDS: Docusate Sodium 100 MG Cap PO SCH (08:46)
[2021-04-04] MEDS: Tolterodine 2 MG Tab PO SCH ×2 (08:47→20:15)
[2021-04-04] MEDS: Aspirin 81 MG Tab.EC PO SCH (08:49)
[2021-04-04] MEDS: Liraglutide (rDNA Origin) 0.6 MG/0.1 ML 3 ML Pen SUBCUT SCH (08:50)
[2021-04-04] MEDS ORDERED: Potassium Chloride 20 MEQ Tab.ER PO ONE (09:00)
--- NOTE | 2021-04-04 09:31 | PN ---
DATE OF SERVICE: 04/04/2021 SUBJECTIVE: Yobany's vital signs have been stable. He has had continuous pulse ox and telemetry on, and there have been no abnormalities. Pulse rate has stayed around 70. REVIEW OF SYSTEMS: Remainder of review of systems negative for any pertinent positives or negatives. OBJECTIVE: GENERAL: Yobany Luis is a pleasant 89-year-old male. VITAL SIGNS: TPR is 98.5, 70, 16 blood pressure 142/56. HEENT: Negative. NECK: Supple. HEART: Regular rate and rhythm. LUNGS: Clear. Incision, left upper chest, is negative. ABDOMEN: Soft and nontender. EXTREMITIES: 2+ peripheral edema. ASSESSMENT: 1. Placement of dual-chamber event pacemaker for second-degree AV block with 1/2 to 1/3 conduction. 2. Date of procedure: 04/01/2021. Surgeon: Luis Haines MD. 3. Uncontrolled diabetes type 2. PLAN: 1. Consult hospitalist, Nicola Barba MD, in regard to diabetes. 2. Discontinue continuous pulse ox and telemetry. 3. Lasix 20 mg IV 1 time. 4. KCl 40 mEq p.o. 1 time today. 5. Check CBC, CMP, mag, phos and BNP in a.m. Continue physical therapy. 6. We will evaluate p.r.n. or in a.m. Petrona Coyle PA-C /[id number]
--- NOTE | 2021-04-04 11:38 | PCM.CONS ---
H&P History of Present Illness - General Date of Service: 04/04/21 Admit Problem/Dx: Admission Diagnosis/Problem Admission Diagnosis/Problem Bradycardia Source of Information: Patient. No: Provider History Limitations: Reports: No Limitations - History of Present Illness Initial Comments - Free Text/Narative: CC: high blood sugars HPI: Art was admitted for placement of a permanent pacemaker to treat bradycardia. I was asked to see him today regarding hyperglycemia. The patient reports that he usually has pretty good control. The folks at the assisted living are in charge of administering insulin. He reports that he takes 36 units twice a day as well as a sliding scale with his meals depending on blood sugar and what he is eating. He thinks typically this is around 20 units per meal. He reports that he has been eating well. There is no pain in the left shoulder. No dizziness. He is still weak and requiring the assist of at least 1. No abdominal pain or nausea. Overall he is feeling well and hoping to be able to go home soon. Left Shoulder Pain Score (Numeric/FACES): 4 - Related Data Allergies/Adverse Reactions: Allergies Allergy/AdvReac Type Severity Reaction Status Date / Time No Known Allergies Allergy Verified 03/31/21 11:02 Home Medications: Home Meds Docusate Sodium [Colace] 2 cap PO BID 09/27/19 [History] Magnesium Oxide [Magnesium] 1 tab PO DAILY 09/27/19 [History] Pantoprazole 40 mg PO DAILY 09/27/19 [History] Aspirin [Halfprin] 81 mg PO DAILY 11/03/19 [History] Furosemide 80 mg PO DAILY 11/03/19 [History] Insulin Glarg,Human.Rec.Analog [Lantus Solostar] 36 units SQ BID 11/03/19 [History] atorvaSTATin [Lipitor] 20 mg PO DAILY 11/03/19 [History] Liraglutide [Victoza] 1.8 mg SQ DAILY 03/31/21 [History] Tolterodine Tartrate [Tolterodine Tartrate ER] 4 mg PO BEDTIME 03/31/21 [History] polyethylene glycoL 3350 [MiraLAX] 1 packet PO DAILY 03/31/21 [History] Tamsulosin HCl [Flomax] 0.4 mg PO BEDTIME 04/01/21 [History] Insulin Lispro [Insulin Lispro Kwikpen U-100] 0 unit SQ TIDAC 04/04/21 [History] Past Medical History HEENT History: Reports: Other (See Below) Other HEENT History: Dry Eye Syndrome Cardiovascular History: Reports: Afib, CAD, Cardiomyopathy, Heart Failure, High Cholesterol, Hypertension, Pacemaker Genitourinary History: Reports: Chronic Renal Insuffiency Musculoskeletal History: Reports: Fracture, Other (See Below) Other Musculoskeletal History: R wrist Fx 10/30/19. right knee pain. right shoulder pain Endocrine/Metabolic History: 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, Type II - Infectious Disease History Infectious Disease History: Reports: [id number]-Ljvtufndb Enterobacteriaceae, Measles, Mumps - Past Surgical History Cardiovascular Surgical History: Reports: Pacer Musculoskeletal Surgical History: Reports: None Social & Family History - Family History Family Medical History: No Pertinent Family History - Tobacco Use Tobacco Use Status *Q: Unknown Ever Used Tobacco - Caffeine Use Caffeine Use: Reports: Coffee - Recreational Drug Use Recreational Drug Use: No H&P Review of Systems - Review of Systems: Review Of Systems: See Below Free Text/Narrative: A complete 12 point review of systems was obtained. Pertinent positives and negatives are noted in the history of present illness. All other systems were reviewed and were negative except as noted. Exam - Exam Exam: See Below - Vital Signs Vital Signs: Last Vital Signs Temp 36.9 C 04/04/21 11:35 Pulse 70 04/04/21 11:35 Resp 16 04/04/21 11:35 BP 154/68 H 04/04/21 11:35 Pulse Ox 90 L 04/04/21 11:35 Weight: 108.409 kg - Exam Quality Assessment: No: Supplemental Oxygen General: Alert, Oriented, Cooperative. No: Mild Distress HEENT: Conjunctiva Clear, Mucosa Moist & [place] Neck: Supple, Trachea Midline Lungs: Normal Respiratory Effort. No: Wheezing Cardiovascular: Regular Rate, Regular Rhythm GI/Abdominal Exam: Soft, No Distention Extremities: No Pedal Edema. No: Increased Warmth Skin: Warm, Dry, Incision (Pacemaker incision healing well with no surrounding bruising, erythema or swelling) Neuro Extensive - Mental Status: Alert, Oriented x3 Neuro Extensive - Motor, Sensory, Reflexes: No: Dysarthria, Abnormal Motor, Tremor Psychiatric: Alert, Normal Affect - Patient Data Lab Results Last 24 hrs: Laboratory Results - last 24 hr 04/03/21 04/03/21 04/04/21 Range/Units 16:27 20:58 07:21 POC Glucose 330 H 395 H 267 H (74-106) mg/dL 04/04/21 Range/Units 11:25 POC Glucose 294 H (74-106) mg/dL Result Diagrams: 04/03/21 04:15 04/03/21 04:15 Sepsis Event Note - Evaluation Sepsis Screening Result: No Definite Risk - Focused Exam Vital Signs: Vital Signs Temp Pulse Resp BP Pulse Ox 04/04/21 11:35 36.9 C 70 16 154/68 H 90 L 04/04/21 07:00 36.9 C 70 16 142/56 H 96 04/04/21 02:36 36.9 C 70 18 157/66 H 96 04/04/21 01:54 96 Consult PN Assessment/Plan Procedures: Procedures ASSAY OF NATRIURETIC PEPTIDE (09/27/19) ASSAY OF TROPONIN QUANT (09/27/19) C-REACTIVE PROTEIN (10/13/19) COMPLETE CBC W/AUTO DIFF WBC (10/13/19) COMPREHEN METABOLIC PANEL (10/13/19) DRAIN/INJ JOINT/BURSA W/O US (01/07/20) EMERGENCY DEPT VISIT (12/14/19) EMERGENCY DEPT VISIT (10/13/19) EMERGENCY DEPT VISIT (09/27/19) GLUCOSE BLOOD TEST (10/13/19) HYDRATE IV INFUSION ADD-ON (10/13/19) HYDRATION IV INFUSION INIT (10/13/19) MANUAL THERAPY 1/> REGIONS (08/03/19) OFFICE O/P EST MOD 30-39 MIN (01/07/20) PT EVAL LOW COMPLEX 20 MIN (07/14/19) ROUTINE VENIPUNCTURE (10/13/19) SELF CARE MNGMENT TRAINING (07/14/19) THER/PROPH/DIAG INJ IV PUSH (09/27/19) THERAPEUTIC EXERCISES (08/03/19) UPR/L XTREMITY ART 2 LEVELS (10/22/19) URINALYSIS AUTO W/SCOPE (10/13/19) US EXAM ABDO BACK WALL LNADON (05/12/19) X-RAY EXAM CHEST 1 VIEW (09/27/19) X-RAY EXAM OF KNEE 3 (01/07/20) X-RAY EXAM OF KNEES (01/07/20) X-RAY EXAM OF SHOULDER (02/18/20) X-RAY EXAM OF WRIST (02/18/20) Problem List Initiated/Reviewed/Updated: Yes My Orders Last 24 Hours: My Active Orders 04/04/21 11:36 Communication Order [RC] PRN Communication Order [RC] PRN 04/04/21 12:00 Insulin Glarg,Human.Rec.Analog [LantUS Solostar] 20 units SUBCUT ONETIME ONE 04/04/21 17:00 Insulin Lispro [HumaLOG] See Protocol SUBCUT QIDACANDBED 04/04/21 21:00 Insulin Glarg,Human.Rec.Analog [LantUS Solostar] 36 units SUBCUT BID Plan: ASSESSMENT RECOMMENDATIONS - Type 2 diabetes mellitus, aldbvof-cbqphsayg-fhenxgwh under good control at home. Patient has been receiving quite small doses of insulin compared to his usual regimen. Planning to reinitiate usual long-acting insulin and close to his home dose of mealtime insulin since he has not been eating quite to his baseline. -Lantus 20 units x 1 this morning and then 36 units twice daily starting tonight -10 units of short acting insulin plus medium dose sliding scale with meals -I do not anticipate that we need to make any changes to his usual regimen after hospital discharge. 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 -Postoperative care as per surgical team Nicola Barba MD Requesting Provider: Dr. Haines Date Consult Requested: 04/04/21 Reason for Consult: Hyperglycemia Patient History Reviewed: Yes Admission H&P Reviewed: Yes Notified Requestor: Yes Time Spent (in minutes): 45
[2021-04-04] MEDS ORDERED: Insulin Glargine,Human Rec. Analog 100 Units/ML 3 ML Pen SUBCUT ONE (12:00)
[2021-04-04] MEDS ORDERED: Glucagon,Human Recombinant 1 MG Vial IM PRN (17:22)
[2021-04-04] MEDS ORDERED: 50% Dextrose in Water 50 ML Syringe IVPUSH PRN (17:22)
[2021-04-04] MEDS: atorvaSTATin 20 MG Tab PO SCH (20:15)
[2021-04-04] MEDS: Insulin Glargine,Human Rec. Analog 100 Units/ML 3 ML Pen SUBCUT SCH (21:27)
[2021-04-05] MEDS: Nystatin Crm 15 GM Tube TOP SCH (06:38)
[2021-04-05] MEDS ORDERED: Insulin Lispro 100 Unit/ML 3 ML KwikPen SUBCUT SCH (08:00)
[2021-04-05] MEDS: Docusate Sodium 100 MG Cap PO SCH (08:27)
[2021-04-05] MEDS: Tolterodine 2 MG Tab PO SCH (08:27)
[2021-04-05] MEDS: Furosemide 40 MG Tab PO SCH (08:28)
[2021-04-05] MEDS: Pantoprazole 40 MG Tab.CR PO SCH (08:28)
[2021-04-05] MEDS: Aspirin 81 MG Tab.EC PO SCH (08:28)
[2021-04-05] MEDS: Insulin Lispro 100 Unit/ML 3 ML KwikPen SUBCUT SCH (08:30)
[2021-04-05] MEDS: Insulin Glargine,Human Rec. Analog 100 Units/ML 3 ML Pen SUBCUT SCH (08:30)
[2021-04-05] MEDS: Liraglutide (rDNA Origin) 0.6 MG/0.1 ML 3 ML Pen SUBCUT SCH (08:32)
--- NOTE | 2021-04-05 10:32 | DISCH ---
ADMISSION DIAGNOSES: 1. 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 2. Bradycardia. 3. Chronic atrial fibrillation. 4. Coronary artery disease. 5. Cardiomyopathy. 6. High cholesterol. 7. Hypertension. 8. Chronic renal insufficiency. 9. Diabetes type 2. DISCHARGE DIAGNOSES: 1. Placement of dual chamber event pacemaker for second-degree atrioventricular block with 1/2 to 1/3 conduction. 2. Date of procedure: 04/01/2021. Surgeon: Luis Haines MD. HISTORY: Yobany Luis is an 89-year-old male who presented to the Emergency Department [facility] from a local assisted living facility with bradycardia, blurred vision. After preoperative evaluation and discussion of possible risks and possible complications, he wished to proceed with surgical procedure. HOSPITAL COURSE: Pacemaker was placed on 04/01/2021. He had no operative complications. On postoperative day #1, pacemaker was functioning well. No incision complication. Yobany was quite immobile and staff was questioning whether or not he could return to assisted living. His BNP was elevated and he was given additional Lasix. On postoperative day #2, physical therapy was started, blood sugars were recorded, and BNP remained to be elevated, so an additional Lasix 20 mg IV was given. Physical therapy continued to work with the patient and blood sugars were monitored and discharge planning was involved and the patient was accepted to go to [facility] until he can return to assisted living. CONDITION: Stable. PHYSICAL EXAMINATION: GENERAL: Yobany Luis is a pleasant 89-year-old male. VITAL SIGNS: Height is 5 feet 11 inches, weight is 239 pounds, BMI is 33.3. TPR 97.5, 69, 18, blood pressure 149/75, O2 sats by pulse oximetry 93%. HEENT: Negative. He is hard of hearing, but hears well with hearing aids. NECK: Supple. CHEST: Left chest pacemaker incision Steri-Stripped. Incision healing well. No hematoma or seroma noted. HEART: Regular rate and rhythm. LUNGS: Clear. ABDOMEN: Soft, nontender. Last bowel movement 03/05/2021. Oral intake 1110. Urine output 2075. EXTREMITIES: Trace peripheral edema. LABORATORY DATA: Hemoglobin 11.7. Creatinine 1.8, GFR 36. Last glucose was 233. BNP was 6963. DISPOSITION: Discharged to long-term care. CONDITION: Stable. MEDICATIONS: To resume his home medications that he was on prior to admission, Tylenol 650 mg p.o. q.6 hours p.r.n. pain; aspirin 81 mg p.o. daily; Lipitor 20 mg p.o. at bedtime; insulin lispro U-100 per sliding scale 3 times a day; Lantus 36 units subcu b.i.d.; Flomax 0.4 mg p.o. at bedtime; Colace 2 capsules p.o. b.i.d.; tolterodine tartrate extended-release 4 mg p.o. at bedtime; furosemide 80 mg p.o. daily; Victoza 1.8 mg subcu daily; MiraLax 1 packet 17 g p.o. daily; magnesium oxide 1 tablet p.o. daily; pantoprazole 40 mg p.o. daily. FOLLOWUP APPOINTMENT: With Luis Haines MD on 04/12/2021 at 10:30 a.m. DIET: Diabetic diet. Drink 8 to 10 glasses of water a day. ACTIVITY: No lifting greater than 10 pounds for 2 weeks. May shower. Keep operative site clean and dry. Notify provider if any fever, increased pain, swelling, redness, drainage, nausea, or vomiting. Check blood sugars q.i.d. Physical therapy and occupational therapy were ordered. /[id number]
--- NOTE | 2021-04-05 13:27 | OR ---
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 PROCEDURE PERFORMED: Placement of dual-chamber cardiac pacemaker (46249). ANESTHESIA: Local plus IV sedation. INDICATION FOR PROCEDURE: The patient presents to the emergency room with some significant weakness. Workup revealed a second-degree Mobitz type 2 AV block with 1:2 and 1:3 conduction rate and a baseline ventricular rate in the low 30s. The patient's cardiac workup otherwise is negative, and the plan at this point is to proceed with dual-chamber pacemaker insertion. Potential risks of the procedure including bleeding; infection; injury to vasculature, lung, or heart; possible problems with leads becoming detached; or the pacemaker system not functioning properly along with the remote possibility of cardiopulmonary, septic, or hemorrhagic complications leading to were discussed, and the patient wishes to proceed. DETAILS OF PROCEDURE: The patient was taken to the operating room and placed in a supine position. After IV sedation was administered, the upper chest and neck areas were prepped and draped. The left subclavian area was then anesthetized, left subclavian vein cannulated, a guidewire manipulated from there into the superior vena cava. Some additional local was then injected, and a transverse infraclavicular incision was made and carried down through the skin, subcutaneous tissue, and the pectoralis major fascia. A pocket was then created underneath the pectoralis major fascia for the pulse generator and a second wire then placed into and into the superior vena cava. At this point, the Medtronic leads placed with introducer and peel-away catheters. The right atrial lead was Medtronic, model #5076-52, and the ventricular lead was a Medtronic, model #5076-58, both of these were screw-in type leads. The second location tested for the ventricular lead was satisfactory with a sensing of 0.5 V. The right atrial lead was noted to have somewhat higher pacing threshold at 1.6, but was sequentially improving as the case went on down into the level just above 1.1 V. Both leads had appropriate placed and were sutured into the pocket with some 3-0 Vicryl stitch. Medtronic pulse generator, model #[id number] was then placed. This was placed with a backup rate of 70 as it would appear the patient for much of the time might be somewhat rate dependent on the atrial lead. After the pulse generator was connected, immediate adequate pacing and sensing functions were noted and the radial pulse generator was placed in the pocket at the end of the procedure. The wound was intermittently irrigated with a meropenem and Zyvox-containing saline solution. The incision was then closed with 2 layers of 3-0 Vicryl stitch deep and then a 4-0 Vicryl subcuticular stitch. Dressing was applied. Chest x-ray shows , and the patient was taken to the recovery room in satisfactory condition. Luis Haines MD Job #: [id number]
== END 2021-04-05 09:45 | DRG 243 ==
LOC: JP.ED 10:48 → JP.SDS 04-01 07:55 → JP.ED 04-01 10:25 → UNDOFXSDCACCOM 04-01 11:30 → UNDOFXSDCRRACCOM 04-01 11:30 → JP.MS 04-01 11:30 → JP.SDS 04-01 11:30 → JP.MS 04-02 07:25 → UNDOADMIN 04-03 10:27 → JP.MS 04-03 10:27
PROVIDERS: ADMIT Surgery; ATTEND Surgery
PROC: 0JH606Z Insertion of Pacemaker, Dual Chamber into Chest Subcutaneous Tissue and Fascia, Open Approach (ICD-10-PCS; principal; 2021-04-01)
PROC: 02HK3JZ Insertion of Pacemaker Lead into Right Ventricle, Percutaneous Approach (ICD-10-PCS; 2021-04-01)
PROC: 02H63JZ Insertion of Pacemaker Lead into Right Atrium, Percutaneous Approach (ICD-10-PCS; 2021-04-01)
DX: I44.1 Atrioventricular block, second degree (principal); I13.0 Hypertensive heart and chronic kidney disease with heart failure and stage 1 through stage 4 chronic kidney disease, or unspecified chronic kidney disease; I48.20 Chronic atrial fibrillation, unspecified; I25.10 Atherosclerotic heart disease of native coronary artery without angina pectoris; H04.129 Dry eye syndrome of unspecified lacrimal gland; I48.91 Unspecified atrial fibrillation; R00.1 Bradycardia, unspecified; Z20.822 Contact with and (suspected) exposure to COVID-19; I42.9 Cardiomyopathy, unspecified; I50.9 Heart failure, unspecified; L89.302 Pressure ulcer of unspecified buttock, stage 2; E78.00 Pure hypercholesterolemia, unspecified; N18.9 Chronic kidney disease, unspecified; E11.22 Type 2 diabetes mellitus with diabetic chronic kidney disease; Z79.82 Long term (current) use of aspirin; Z79.899 Other long term (current) drug therapy; Z79.4 Long term (current) use of insulin
CPT/HCPCS: 36415; 80048; 80053; 81001; 82947; 83735; 83880; 84100; 84443; 84484; 85025; 85027; 93005; 94762; 96374; 97110-GP; 97162-GP; 97530-GP; 97535-GP; 99285-25; A9270-GY; C1898; J0461; J0690; J1815; J1815-GY; J1940; J2020; J2185; J2704; J3010; J3490; J7030; J7120; U0002